=== PATIENT | female | born 1990 | race Caucasian/White ===

== ENCOUNTER 2019-02-05 07:43 | Emergency (ER) | payer MEDICAID ==
[~2019-02-05] VITALS: Ht 167.6 cm; Wt 100.0 kg
[2019-02-05] MEDS ORDERED: BACITRACIN ZINC OINT UDPKT TOP ONE (09:15)
[2019-02-05 09:27] VITALS: BP 128/82
== END 2019-02-05 09:28 | disposition home or self-care (01) ==
LOC: ER 07:43
DX: S00.211A Abrasion of right eyelid and periocular area, initial encounter (principal); J45.909 Unspecified asthma, uncomplicated; X58.XXXA Exposure to other specified factors, initial encounter; Y93.89 Activity, other specified; Y92.89 Other specified places as the place of occurrence of the external cause; Y99.8 Other external cause status
CPT/HCPCS: 99282